=== PATIENT | female | born 1955 | race Caucasian/White ===

== ENCOUNTER 2019-12-13 17:25 | Observation (INO) ==
[2019-12-13] MEDS ORDERED: ACETAMINOPHEN 325 MG TAB PO PRN (20:47)
[2019-12-13] MEDS ORDERED: ONDANSETRON INJ 2 MG/ML 2 ML VIAL IV PRN (20:47)
--- NOTE | 2019-12-13 20:59 | History & Physical Report ---
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 No abdominal pain, distention. Abdominal exam is benign. No UGI symptoms. Patient HD stable -Admit to medical with telemetry -Maintain 2 PIVs -Check CBC now and q 8 hours - transfuse for active bleed, Hgb <7 or symptomatic anemia -Obtain records from [facility] and colonoscopy reports from Dr. Verma -GI consultation appreciated -Will keep patient NPO, check Covid-19 for possible intervention Present on Admission?: Yes (2) Syncope: Most likely secondary to #1. Patient with no history of structural heart disease, arrhythmia or CAD. 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 Patient reports passing dark red blood with clots over the last 24 hours, blood "pouring out of her" at times. She has no abdominal pain, cramping, bloating or distention. No nausea/vomiting/hematemesis. 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 She was at work today and reports feeling dizzy and lightheaded. She sat down and put her head down then upon standing she had a syncopal event. She was seen in the ER there - found to be afebrile, HD stable with HR 72-83 and BP 118-156/59-93. Initially noted to be ashen in color which resolved. Labs at [facility] were significant for Hgb=13.2, Hct=38.7. She did have an elevated WBC count at 16.2. PT=11.6, INR=1.16 Lacate=2.1 She was administered 1L NSS and Metoclopramide and transferred to [facility] for GI services. Allergies Allergy/AdvReac Type Severity Reaction Status Date / Time amoxicillin Allergy Intermediate rash Verified 12/13/19 21:07 clavulanic acid Allergy Intermediate rash Verified 12/13/19 21:07 Home Medications Home Medications Medication Instructions Recorded Confirmed Type latanoprost 1 drp OPHTHALMIC (EYE) DAILY 12/13/19 12/13/19 History Past Med/Surg History Medical History (Updated 12/13/19 @ 21:18 by Jennifer Killian DO) Diverticulosis with history of rupture Glaucoma Internal hemorrhoid Primary cancer of appendix Surgical History (Updated 12/13/19 @ 21:09 by Jennifer Killian DO) History of Achilles tendon repair History of appendectomy History of cataract surgery History of section History of colostomy History of colostomy reversal History of hemicolectomy History of hernia surgery Family History (Updated 12/13/19 @ 21:09 by Jennifer Killian DO) Other Cancer Coronary heart disease Social History (Updated 12/13/19 @ 21:10 by Jennifer Killian DO) Smoking Status: Former smoker Hx Alcohol Use: No Hx Substance Use: No current occupational status: employed Review of Systems Review of Systems: All systems reviewed & are unremarkable except as noted in HPI & below Physical Exam Physical Exam: General: patient resting comfortably, NAD, non-toxic in appearance, AA&O x 4 Skin: warm, dry, intact, no rashes or lesions HEENT: NC/AT, PERRL, EOMI, anicteric sclera, conjunctiva without injection, external ear normal to inspection and nontender, nares patent, moist mucus membranes, dentition intact, no oropharyngeal lesions, neck supple, trachea midline, no LAD, no thyromegaly, no JVD Heart: +S1/S2, regular, no m/r/g Lungs: equal air entry bilaterally, no rales/rhonchi, faint end-expiratory wheezing in left upper lung field Abd: +BS, soft, NT/ND, no masses/organomegaly/ascites Ext: warm, 2+ pulses in UE/LE bilaterally, no clubbing/cyanosis or edema, PIV in right antecubital Neuro: nonfocal, patient AA&O x 4, speech intact, no facial droop, moving all extremities on command with equal strength 5/5 Results & Data Results & Data ([facility]) Laboratory Results From [facility]: WBC=16.2 Hgb=13.2 Hct=38.7 Chemistry WNL with exception of low Ca at 8.3 Troponin negative Lactate=2.1 LFTs unremarkable EKG with NSR at 71no mormal intervals, no ischemic changes Code Status & VTE Plan Code Status Full PG Care Time/CCT Total # of Minutes Spent Total Time Spent with Patient: Total time spent is greater than 50% in coordination of care (as documented) at patient's floor/unit and/or counseling patient: Coding Level of Care Code 82687 Initial Inpt Care Lvl 2 Diagnoses LGI bleed K92.2 Syncope R55 Syncope type: unspecified Glaucoma H40.9 Glaucoma type: unspecified Laterality: unspecified laterality (1) Syncope Syncope type: unspecified Qualified Code(s): R55 - Syncope and collapse (2) Glaucoma Glaucoma type: unspecified Laterality: unspecified laterality Qualified Code(s): H40.9 - Unspecified glaucoma
[2019-12-13 21:14] LABS: Basophils # (auto) 0.05 K/uL (0-0.2); Basophils % (auto) 0.4 %; Eosinophils # (auto) 0.46 K/uL (0-0.5); Eosinophils % (auto) 3.6 %; Hematocrit (blood only) 37.1 % (37-47); Immature Granulocytes # (auto) 0.04 K/uL (0.00-0.02); Immature Granulocytes % (auto) 0.3 %; Lymphocytes # (auto) 3.49 K/uL (1.2-3.4); Mean Corpuscular Hemoglobin 28.8 pg (25-34); Mean Corpuscular Hgb Conc 32.3 g/dL (32-36); Mean Corpuscular Volume 89.2 fL (80-100); Mean Platelet Volume 9.1 fL (7.4-10.4); Monocytes % (auto) 5.4 %; Neutrophils % (auto) 63.3 %; Platelet Count 225 K/uL (130-400); RDW Coefficient of Variation 14.6 % (11.5-14.5); RDW Standard Deviation 47.1 fL (36.4-46.3); Red Blood Count 4.16 M/uL (4.2-5.4); White Blood Count 12.94 K/uL (4.8-10.8)
[2019-12-13] MEDS ORDERED: SODIUM CHLORIDE 0.9% 1000ML 1,000 ML IV SCH (21:30)
[2019-12-14 06:25] LABS: Basophils # (auto) 0.05 K/uL (0-0.2); Basophils % (auto) 0.5 %; Eosinophils # (auto) 0.34 K/uL (0-0.5); Eosinophils % (auto) 3.2 %; Hematocrit (blood only) 32.6 % (37-47); Hemoglobin 10.8 g/dL (12.0-16.0); Immature Granulocytes # (auto) 0.03 K/uL (0.00-0.02); Immature Granulocytes % (auto) 0.3 %; Lymphocytes # (auto) 2.99 K/uL (1.2-3.4); Lymphocytes % (auto) 27.9 %; Mean Corpuscular Hemoglobin 29.6 pg (25-34); Mean Corpuscular Hgb Conc 33.1 g/dL (32-36); Mean Corpuscular Volume 89.3 fL (80-100); Mean Platelet Volume 8.9 fL (7.4-10.4); Monocytes # (auto) 0.51 K/uL (0.11-0.59); Monocytes % (auto) 4.8 %; Neutrophils # (auto) 6.79 K/uL (1.4-6.5); Neutrophils % (auto) 63.3 %; Platelet Count 202 K/uL (130-400); RDW Coefficient of Variation 14.6 % (11.5-14.5); RDW Standard Deviation 47.9 fL (36.4-46.3); Red Blood Count 3.65 M/uL (4.2-5.4); White Blood Count 10.71 K/uL (4.8-10.8)
[2019-12-14 06:26] LABS: INR 1.2 (0.9-1.1); Prothrombin Time 12.5 Seconds (9.0-12.0)
[2019-12-14 06:44] LABS: Albumin Level 2.8 gm/dl (3.4-5.0); Bilirubin Direct 0.2 mg/dl (0-0.2); Calcium 7.8 mg/dl (8.5-10.1); Creatinine Clr Calc Pharmacy 91.3 ml/min; Est GFR (African American) 106.9; Est GFR (Non-African American) 92.2; Potassium 4.2 mmol/L (3.5-5.1)
[2019-12-14 06:46] LABS: Bilirubin,Total 1.1 mg/dl (0.2-1); Total Protein 5.6 gm/dl (6.4-8.2)
--- NOTE | 2019-12-14 09:16 | Medical Student Progress Note ---
Date of Service December 14, 2019 Assessment & Plan (1) Syncope: Likely secondary to LGIB. No history of cardiac issues, EKG, troponin normal. No chest pain or SOB. Fall precautions. Syncope type: unspecified Qualified Code(s): R55 - Syncope and collapse (2) LGI bleed: Consulted GI: Recommend CT scan and colonoscopy to check lower GI bleed. Continue to monitor hgb and hct. Patient is concerned about prep for colonoscopy making her bleeding worse. She is also concerned about getting a CT today and wants the colonoscopy today instead of tomorrow. NPO Hgb 12.0 on admission down to 10.8 Hct 37.1 to 32.6 (3) Glaucoma: Pressures controlled by latanoprost. Glaucoma type: unspecified Laterality: unspecified laterality Qualified Code(s): H40.9 - Unspecified glaucoma Present on Admission?: Yes Admission and Anticipated Discharge Date Admission Date: December 13, 2019 Subjective CC:Bright red blood and clots pouring out when using the bathroom and passing out Patient is feeling well this morning, more rested since last night, and no blood or stool this morning. Review of Systems Constitutional: no fever and no weakness Respiratory: no cough and no dyspnea Cardiovascular: no chest pain, no palpitations, no syncope and no edema Gastrointestinal: no abdominal pain, no nausea and no vomiting No BM today Physical Exam Constitutional: WD/WN, vitals as above Respiratory: normal respiratory effort, lungs clear to auscultation Cardiovascular: RRR, no murmur, no edema Heart Sounds: normal S1 and normal S2 Gastrointestinal (Abdomen): Inspection/Auscultation: abdomen not distended Percussion/Palpation: abdomen soft; abdomen nontender normal bowel sounds upper right quadrant, no bowel sounds other 3 quadrants Psychiatric: A+Ox3, euthymic affect Results & Data ([facility]) Vital Signs (Past 12 Hours) Vital Signs Temp Pulse Pulse Resp BP Pulse Ox 12/14/19 07:05 36.7 C 79 18 100/67 95 12/14/19 04:00 36.4 C L 66 17 100/66 97 12/14/19 00:00 36.7 C 76 17 100/67 98 12/13/19 23:00 79 12/13/19 22:51 113 H
--- NOTE | 2019-12-14 09:38 | Gastrointestinal Consultation ---
Date of Consultation December 14, 2019 Assessment & Plan (1) LGI bleed: LGI bleeding - Began 12/12/2019. Hgb 10.8/Hct 32.[address] A/P with po and IV contrast. If negative, plan is colonoscopy tomorrow. Please refer to supervising physician addendum for further recommendations. Supervising Physician Co-Signing Physician Notes I have spoken to and examined patient. I reviwed RENEE Rodriguez and agree except as mentioned above. Abd pos bs, soft, no guarding nor rebound GI bleeding--likely LGI bleed. NO stool since last evening and Hgb stable at noon. Recommend colo and if neg EGD but need CT a/p to rule out ischemic colitis or diverticulitis which precludes colonoscopy. If CT done today and can get report this evening then can prep for tomorrow. Elevated WBC at [facility] improved but do CT as above elevated lactic acid at [facility] no current abd pain but check CT as above. History of Present Illness Attending Physician: Lemuel Sweeney, History of Present Illness The patient is a 64-year-old female with past medical history significant for appendiceal cancer 2008 status post hemicolectomy with colostomy placement, subsequent takedown, diverticulosis and internal hemorrhoids who presented to [facility] after positive LOC at work with 24-hour histories of bright and dark red stool with clots. She was subsequently transferred to [facility] as there was not GI coverage at [facility]. On exam/interview today, she reports that she was placed on prednisone 12/02/2019 due to complaints of a new problem. She states on 12/12/2019 she started having loose bowels that progressed to having blood noted in stool. She states this progressed to liquid stool with bloody clots. States there was bright and dark red blood in the stool. 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 She was assessed in the [facility] emergency department as noted above. She denies abdominal pain, nausea, vomiting, hematemesis. Reports last po intake on Saturday. Reports liquid and bloody stool through the night. Reports last colonoscopy 11/[address] Verma at [facility]. She is a former smoker. She reports he quit smoking in 2007. She reports a 36- year smoking pack history. She denies any use of alcohol or recreational drugs including marijuana. 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 She is . Allergies Allergy/AdvReac Type Severity Reaction Status Date / Time amoxicillin Allergy Intermediate rash Verified 12/13/19 21:07 clavulanic acid Allergy Intermediate rash Verified 12/13/19 21:07 Home Medications Home Medications Medication Instructions Recorded Confirmed Type latanoprost 1 drp OPHTHALMIC (EYE) DAILY 12/13/19 12/13/19 History Patient History Medical History (Updated 12/13/19 @ 21:18 by Jennifer Killian DO) Diverticulosis with history of rupture Glaucoma Internal hemorrhoid Primary cancer of appendix Surgical History (Updated 12/13/19 @ 21:09 by Jennifer Killian DO) History of Achilles tendon repair History of appendectomy History of cataract surgery History of section History of colostomy History of colostomy reversal History of hemicolectomy History of hernia surgery Family History (Updated 12/13/19 @ 21:09 by Jennifer Killian DO) Other Cancer Coronary heart disease Social History (Updated 12/13/19 @ 21:10 by Jennifer Killian DO) Smoking Status: Former smoker Smoking End Date: 2007; Second Hand Exposure: No; Do You Dip or Chew Tobacco: No; Tobacco Cessation Education Requested by Patient: No Hx Alcohol Use: No Hx Substance Use: No Preferred Language: Fijian Communication Ability: Effective Apprentice Cook Required: No Beliefs That Will Affect Care: None marital status: Current Living Situation: Spouse current occupational status: employed Feels Safe at Home: Yes Safety Concerns: Feels Safe At This Time Assistive Devices: Denture - Upper, Denture - Lower and Glasses Review of Systems Review of Systems: All systems reviewed & are unremarkable except as noted in Subjective Physical Exam Constitutional: WD/WN, vitals as above Eyes: no conjunctival abnormality ENMT: Nose: no external nose abnormality Neck: normal visual inspection and trachea midline Respiratory: normal respiratory effort, lungs clear to auscultation Cardiovascular: RRR, no murmur, no edema Gastrointestinal (Abdomen): normal bowel sounds, soft, nontender, no hepatosplenomegaly Musculoskeletal: Extremities: no cyanosis and no clubbing Psychiatric: Orientation: alert and oriented x 3 Results & Data ([facility]) Vital Signs (Past 12 Hours) Vital Signs Temp Pulse Pulse Resp BP Pulse Ox 12/14/19 07:05 36.7 C 79 18 100/67 95 12/14/19 04:00 36.4 C L 66 17 100/66 97 12/14/19 00:00 36.7 C 76 17 100/67 98 12/13/19 23:00 79 12/13/19 22:51 113 H Laboratory Results - last 24 hr 12/13/19 12/13/19 12/13/19 21:03 22:30 22:30 WBC 12.94 H RBC 4.16 L Hgb 12.0 Hct 37.1 MCV 89.2 MCH 28.8 MCHC 32.3 RDW Std Deviation 47.1 H RDW Coeff of Jatin 14.6 H Plt Count 225 MPV 9.1 Immature Gran % (Auto) 0.3 Neut % (Auto) 63.3 Lymph % (Auto) 27.0 [place] % (Auto) 5.4 Eos % (Auto) 3.6 Baso % (Auto) 0.4 Neut # (Auto) 8.20 H Lymph # (Auto) 3.49 H [place] # (Auto) 0.70 H Eos # (Auto) 0.46 Baso # (Auto) 0.05 Immature Gran # (Auto) 0.04 H PT INR Sodium Potassium Chloride Carbon Dioxide Anion Gap BUN Creatinine Est Cr Clr Drug Dosing Est GFR ( Amer) Est GFR (Non-Af Amer) BUN/Creatinine Ratio Glucose Calcium Total Bilirubin Direct Bilirubin AST ALT Alkaline Phosphatase Total Protein Albumin COVID-19 [facility] SARS-CoV-2, RNA, NAAT NEGATIVE 12/14/19 12/14/19 12/14/19 06:00 06:00 06:00 WBC 10.71 RBC 3.65 L Hgb 10.8 L Hct 32.6 L MCV 89.3 MCH 29.6 MCHC 33.1 RDW Std Deviation 47.9 H RDW Coeff of Jatin 14.6 H Plt Count 202 MPV 8.9 Immature Gran % (Auto) 0.3 Neut % (Auto) 63.3 Lymph % (Auto) 27.9 [place] % (Auto) 4.8 Eos % (Auto) 3.2 Baso % (Auto) 0.5 Neut # (Auto) 6.79 H Lymph # (Auto) 2.99 [place] # (Auto) 0.51 Eos # (Auto) 0.34 Baso # (Auto) 0.05 Immature Gran # (Auto) 0.03 H PT 12.5 H INR 1.2 H Sodium 143 Potassium 4.2 Chloride 111 H Carbon Dioxide 28 Anion Gap 4.0 BUN 14 Creatinine 0.70 Est Cr Clr Drug Dosing 91.3 Est GFR ( Amer) 106.9 Est GFR (Non-Af Amer) 92.2 BUN/Creatinine Ratio 20.0 Glucose 98 Calcium 7.8 L Total Bilirubin 1.1 H Direct Bilirubin 0.2 AST 16 ALT 33 Alkaline Phosphatase 52 Total Protein 5.6 L Albumin 2.8 L COVID-19 Eval Order SARS-CoV-2, RNA, NAAT
--- NOTE | 2019-12-14 09:49 | Hospitalist Progress Note ---
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 She is hemodynamically stable. Lower GI Bleed - Patient is hemodynamically stable -- BPs in 130/70s with HR 88 today, H&H at 10.8/32.6 this AM - Clinically, patient reports approx. 24 hours of painless loose stools with associated dark/fresh blood (+clots) -- last BM was yesterday (no leakage of blood since) - Per patient, last colonoscopy was approximately 11/[address] Verma at [facility] -- has notable history of internal hemorrhoids and diverticulosis - Patient denies any infectious / inflammatory symptoms preceding this episode -- only possible trigger she recalls is being on prednisone for about a week for OA-related pain - Given history of painless hematochezia and known history of internal hemorrhoids / diverticulosis on previous colonoscopy (per patient), suspect this GIB is likely 2/2 diverticulosis - GI following, appreciate recs: - CT Abdomen/Pelvis to r/o ischemic colitis / diverticulitis, both of which preclude colonoscopy -- f/u on results - Anticipate colonoscopy tomorrow -- f/u based on results ; if negative, consider EGD - Bowel prep this afternoon, NPO after midnight Normocytic Anemia -- Likely 2/2 Acute Blood Loss in Setting of Lower GIB - Admission H&H 12.0/37.1 - Recheck this AM revealed H&H of 10.7/31.8 -- normochromic and normocytic, consistent with loss 2/2 hemorrhage - Patient currently denies any symptoms concerning of anemia, including lightheadedness, dizziness, shortness of breath, chest pain -- continue to monitor - CBC qAM - Transfuse if Hgb < 7 or symptomatic Syncopal Episode on 12/12 - Most likely 2/2 acute blood-loss anemia in setting of lower GIB - Patient denies any history of structural heart disease, arrhythmia, or CAD - ECG in the ED demonstrated NSR without any concerning ST-T abnormalities - Med/surg with telemetry for continued cardiac monitoring because of recent syncope - Fall precautions Chronic Medical Problems [place]: Continue latanoprost Dispo: Med/surg with Tele F/E/N: Bowel prep in anticipation of colonoscopy tomorrow, NPO after midnight; NSS @ 125 mIVF x 1 bag PPX: Low risk of DVT Code: Full code (2) LGI bleed: Admission and Anticipated Discharge Date Admission Date: December 13, 2019 Supervising Physician Co-Signing Physician Notes I personally examined the patient and verified all farfan points of history and exam, discussed case, and agree with decision making with Dr Sterling. feeling ok no bleeding since admission case d/w GI vitals noted nad heent nc at mmm breathing unlabored no accessory muscles good effort LGI bleeding and (mild) acute blood loss anemia -continue to follow -CT done - no ischemia noted -scope tomorrow -follow clinically/ follow vitals/follow Hgb otherwise as above Subjective No acute events overnight. Patient denies any abdominal pain or bleeding overnight, endorsing the last time her bleeding occurred was yesterday. On further review of history, she says that her presenting symptoms were mostly diarrhea with clots of blood. She denies any recent illnesses, including fevers, chills, or night sweats. Denies this has ever happened before. Of note, she does report feeling hungry, not having eaten since Saturday night. No other concerns this morning. Review of Systems Constitutional: no fever, no chills and no sweats Respiratory: no cough and no dyspnea Cardiovascular: no chest pain and no palpitations Gastrointestinal: as per Subjective / HPI, + change in bowel habits and + blood in stools; no abdominal pain, no nausea, no vomiting and no cramping Physical Exam Constitutional: Well-appearing 64-year-old female who sitting back in her hospital bed, relaxed and attentive in our conversation. She speaks in full sentences. She is alert and oriented, not in any acute distress. Respiratory: Good respiratory effort with symmetric expansion of the chest. Lungs are clear to auscultation bilaterally without any crackles or wheezes. Cardiovascular: Normal rate and regular rhythm, S1 and S2 are present without any murmurs rubs or gallops. Gastrointestinal (Abdomen): Normoactive bowel sounds. Abdomen is soft, nontender, nondistended to palpation. No appreciable organomegaly. Psychiatric: A+Ox3, euthymic affect Results & Data Results & Data ([facility]) Vital Signs (Past 12 Hours) Vital Signs Temp Pulse Pulse Resp BP Pulse Ox 12/14/19 07:05 36.7 C 79 18 100/67 95 12/14/19 04:00 36.4 C L 66 17 100/66 97 12/14/19 00:00 36.7 C 76 17 100/67 98 12/13/19 23:00 79 12/13/19 22:51 113 H Resident Activity Tracking Resident Involvement: Resident Care Provided Care Provided: Adult Hospital Medicine (1) Syncope Syncope type: unspecified Qualified Code(s): R55 - Syncope and collapse
[2019-12-14 13:02] LABS: Basophils # (auto) 0.03 K/uL (0-0.2); Basophils % (auto) 0.3 %; Eosinophils # (auto) 0.22 K/uL (0-0.5); Eosinophils % (auto) 2.3 %; Hematocrit (blood only) 31.8 % (37-47); Hemoglobin 10.7 g/dL (12.0-16.0); Immature Granulocytes # (auto) 0.03 K/uL (0.00-0.02); Immature Granulocytes % (auto) 0.3 %; Lymphocytes # (auto) 2.44 K/uL (1.2-3.4); Mean Corpuscular Hemoglobin 29.6 pg (25-34); Mean Corpuscular Hgb Conc 33.6 g/dL (32-36); Mean Corpuscular Volume 88.1 fL (80-100); Mean Platelet Volume 8.9 fL (7.4-10.4); Monocytes # (auto) 0.57 K/uL (0.11-0.59); Monocytes % (auto) 6.1 %; Neutrophils # (auto) 6.09 K/uL (1.4-6.5); Platelet Count 192 K/uL (130-400); RDW Coefficient of Variation 14.5 % (11.5-14.5); RDW Standard Deviation 47.1 fL (36.4-46.3); Red Blood Count 3.61 M/uL (4.2-5.4); White Blood Count 9.38 K/uL (4.8-10.8)
[2019-12-14] MEDS ORDERED: LACTATED RINGER'S 1,000 ML IV SCH (14:30)
[2019-12-14] MEDS ORDERED: IOVERSOL 100ml IV ONE (17:47)
--- NOTE | 2019-12-14 17:57 | CT Scan Report ---
CT abd pelvis oral and IV con CLINICAL HISTORY: GI bleed, r/o ischemic colitis COMPARISON STUDY: None. TECHNIQUE: Patient was scanned following administration of dilute oral contrast, and in a dynamic hel ical fashion during intravenous administration of 92 cc of Optiray 320. A dose lowering technique wa s utilized adhering to the principles of ALARA. CT DOSE: 1157.90 mGy.cm FINDINGS: Lower chest: There is mild basilar atelectasis Liver: There is 9 mm right hepatic lobe hypodense lesion likely representing a cyst. Gallbladder: Unremarkable. Spleen: Normal in size and attenuation. Pancreas: Unremarkable. Adrenal glands: There is minor left adrenal gland thickening. Kidneys: There is symmetric renal cortical enhancement. The kidneys are normal in size without hydron ephrosis. Bowel: There are no transition zones to indicate bowel obstruction. There are no findings to indicate acute diverticulitis. By history the appendix is surgically absent. There is borderline sigmoid wall thickening. There is no evidence for infiltration of the perisigmoid fat. No inflamed diverticula ar e visualized. Peritoneum: There is no intraperitoneal free air or abdominal ascites. There are small fat-containing ventral hernias. The patient appears be status post ventral hernia repair with mesh. Vasculature: The abdominal aorta is normal in course and caliber. There is no evidence of superior me senteric or celiac artery stenosis. Adenopathy: None. Pelvic viscera: The bladder, and pelvic viscera are unremarkable. Skeletal structures: No destructive osseous lesions are seen. IMPRESSION: 1. No evidence of bowel obstruction. No evidence of free air 2. Minimal sigmoid wall thickening versus a nondistended segment 3. No evidence of acute diverticulitis 4. No evidence of celiac or superior mesenteric artery stenosis on this nonangiographic study ACT 112: Negative or not required by law. Electronically signed by: Domingo Shin M.D. 12/14/2019 5:56 PM
--- NOTE | 2019-12-14 18:40 | Billing Data ---
Date of Service December 14, 2019 Coding Level of Care Code 26406 Subseq Hosp Care Lvl 3
[2019-12-14] MEDS ORDERED: POLYETHYLENE (MIRALAX) 17 GM PACK PO ONE ×2 (19:30→20:47)
[2019-12-14] MEDS ORDERED: LATANOPROST 0.005% OP SOLN 2.5 ML BTL OP SCH (21:00)
[2019-12-15 05:33] LABS: Basophils # (auto) 0.03 K/uL (0-0.2); Basophils % (auto) 0.3 %; Eosinophils # (auto) 0.26 K/uL (0-0.5); Eosinophils % (auto) 2.5 %; Hematocrit (blood only) 29.2 % (37-47); Hemoglobin 10.1 g/dL (12.0-16.0); Immature Granulocytes # (auto) 0.04 K/uL (0.00-0.02); Immature Granulocytes % (auto) 0.4 %; Lymphocytes # (auto) 2.81 K/uL (1.2-3.4); Lymphocytes % (auto) 27.2 %; Mean Corpuscular Hemoglobin 30.7 pg (25-34); Mean Corpuscular Hgb Conc 34.6 g/dL (32-36); Mean Corpuscular Volume 88.8 fL (80-100); Monocytes % (auto) 5.8 %; Neutrophils # (auto) 6.59 K/uL (1.4-6.5); Neutrophils % (auto) 63.8 %; Platelet Count 198 K/uL (130-400); RDW Coefficient of Variation 14.6 % (11.5-14.5); RDW Standard Deviation 47.7 fL (36.4-46.3); Red Blood Count 3.29 M/uL (4.2-5.4); White Blood Count 10.33 K/uL (4.8-10.8)
--- NOTE | 2019-12-15 05:46 | Electrocardiogram Report ---
Test Reason : Blood Pressure : / mmHG Vent. Rate : 072 BPM Atrial Rate : 072 BPM P-R Int : 136 ms QRS Dur : 090 ms QT Int : 428 ms P-R-T Axes : 042 -15 010 degrees QTc Int : 468 ms Normal sinus rhythm Normal ECG No previous ECGs available Confirmed by Silverio Abarca ([id number]) on 12/15/2019 5:45:56 AM Referred By: Cathleen Hankins Confirmed By:Silverio Abarca
[2019-12-15 06:19] LABS: Est GFR (African American) 105.1; Est GFR (Non-African American) 90.7; Potassium 3.8 mmol/L (3.5-5.1)
[2019-12-15 06:20] LABS: Albumin Globulin Ratio 0.9 (0.9-2); Albumin Level 2.8 gm/dl (3.4-5.0); BUN Creatinine Ratio 11.3 (10-20); Bilirubin,Total 0.6 mg/dl (0.2-1); Calcium 8.1 mg/dl (8.5-10.1); Creatinine Clr Calc Pharmacy 90.1 ml/min; Total Protein 5.8 gm/dl (6.4-8.2)
--- NOTE | 2019-12-15 08:39 | Medical Student Progress Note ---
Date of Service December 15, 2019 Assessment & Plan (1) Syncope: No syncope or lightheadedness or dizziness since admission. Likely secondary to LGIB. No cardiac issues. Syncope type: unspecified Qualified Code(s): R55 - Syncope and collapse (2) LGI bleed: Patient is a 64 y/o F with 2 days of bright red blood in stool with history of appendiceal cancer, hemicolectomy, with colostomy and reversal, and ruptured diverticulosis. No inflamed diverticula, diverticulitis, or bowel obstruction seen on CT. Some minimal sigmoid wall thickening. Colonoscopy prep done overnight, colonoscopy scheduled for 4:30pm today. Hbg 10.7 yesterday to 10.1 this morning. Hct 31.8 to 29.2. (3) Glaucoma: Glaucoma type: unspecified Laterality: unspecified laterality Qualified Code(s): H40.9 - Unspecified glaucoma Admission and Anticipated Discharge Date Admission Date: December 13, 2019 Subjective Patient was given Miralax as part of colonoscopy prep last night. Passed one loose bowel movement with bright red blood before receiving Miralax. Post- Miralax, she passed multiple clear bowel movements with no blood. She was not able to complete the full Miralax prep. She experienced some abdominal cramping and nausea which resolved with Zofran. Overall feeling better this morning compared to yesterday with no nausea, vomiting, abd pain or cramping, and no bloody stool today. Endorses a headache this morning from not eating other than clear liquids since Saturday. Colonoscopy is scheduled for today at 4:[address] Patel. Review of Systems Respiratory: no cough and no dyspnea Cardiovascular: no chest pain Gastrointestinal: no abdominal pain, no nausea, no vomiting, no cramping and no blood in stools clear liquid stools Physical Exam Constitutional: no acute distress Respiratory: normal respiratory effort, lungs clear to auscultation Cardiovascular: RRR, no murmur, no edema Heart Sounds: normal S1 and normal S2 Gastrointestinal (Abdomen): normal bowel sounds, soft, nontender, no hepatosplenomegaly Inspection/Auscultation: abdomen not distended Percussion/Palpation: no guarding Results & Data ([facility]) Vital Signs (Past 12 Hours) Vital Signs Temp Pulse Resp BP Pulse Ox 12/15/19 07:27 36.6 C 82 16 116/78 94 12/14/19 23:05 36.6 C 98 H 20 113/76 96 12/14/19 20:48 36.8 C 89 18 120/[address] IMPRESSION: 1. No evidence of bowel obstruction. No evidence of free air 2. Minimal sigmoid wall thickening versus a nondistended segment 3. No evidence of acute diverticulitis 4. No evidence of celiac or superior mesenteric artery stenosis on this nonangiographic study
--- NOTE | 2019-12-15 08:52 | Gastroenterology Progress Note ---
Date of Service December 15, 2019 Assessment & Plan (1) LGI bleed: LGI bleeding CT A/p demonstrated minimal sigmoid wall thickening versus a nondistended segment; no acute findings. Patient tolerated colonoscopy prep. Today - Hgb 10.1/Hct 29.2, WBC WNL. Plan is EGD and colonoscopy today. 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 She was subsequently transferred to [facility] as there was not GI coverage at [facility]. On exam/interview today, she reports she has had no further bloody stools. CT A/P imaging demonstrated showed minimal sigmoid wall thickening vs. a nondistended segment. No other acute findings. She denies abdominal pain, nausea, vomiting, hematemesis. Tolerated colonoscopy prep with minimal nausea. Reports clear liquid bowel movements. No fever, dizziness, shortness of breath. Review of Systems Review of Systems: All systems reviewed & are unremarkable except as noted in Subjective Physical Exam Constitutional: WD/WN, vitals as above Eyes: no conjunctival abnormality ENMT: Nose: no external nose abnormality Neck: normal visual inspection and trachea midline Respiratory: normal respiratory effort, lungs clear to auscultation Cardiovascular: RRR, no murmur, no edema Gastrointestinal (Abdomen): normal bowel sounds, soft, nontender, no hepatosplenomegaly Musculoskeletal: Extremities: no cyanosis and no clubbing Psychiatric: Orientation: alert and oriented x 3 Results & Data ([facility]) Vital Signs (Past 12 Hours) Vital Signs Temp Pulse Resp BP Pulse Ox 12/15/19 07:27 36.6 C 82 16 116/78 94 12/14/19 23:05 36.6 C 98 H 20 113/76 96 Laboratory Results - last 24 hr 12/14/19 12/15/19 12/15/19 12:47 05:10 05:10 WBC 9.38 10.33 RBC 3.61 L 3.29 L Hgb 10.7 L 10.1 L Hct 31.8 L 29.2 L MCV 88.1 88.8 MCH 29.6 30.7 MCHC 33.6 34.6 RDW Std Deviation 47.1 H 47.7 H RDW Coeff of Jatin 14.5 14.6 H Plt Count 192 198 MPV 8.9 9.0 Immature Gran % (Auto) 0.3 0.4 Neut % (Auto) 65.0 63.8 Lymph % (Auto) 26.0 27.2 Moody % (Auto) 6.1 5.8 Eos % (Auto) 2.3 2.5 Baso % (Auto) 0.3 0.3 Neut # (Auto) 6.09 6.59 H Lymph # (Auto) 2.44 2.81 Moody # (Auto) 0.57 0.60 H Eos # (Auto) 0.22 0.26 Baso # (Auto) 0.03 0.03 Immature Gran # (Auto) 0.03 H 0.04 H Sodium 144 Potassium 3.8 Chloride 113 H Carbon Dioxide 26 Anion Gap 5.0 BUN 8 D Creatinine 0.71 Est Cr Clr Drug Dosing 90.1 Est GFR ( Amer) 105.1 Est GFR (Non-Af Amer) 90.7 BUN/Creatinine Ratio 11.3 Glucose 92 Calcium 8.1 L Total Bilirubin 0.6 D AST 16 ALT 31 Alkaline Phosphatase 49 Total Protein 5.8 L Albumin 2.8 L Globulin 3.0 Albumin/Globulin Ratio 0.9 12/14/2019: CT abd pelvis oral and IV con demonstrated: 1. No evidence of bowel obstruction. No evidence of free air 2. Minimal sigmoid wall thickening versus a nondistended segment 3. No evidence of acute diverticulitis 4. No evidence of celiac or superior mesenteric artery stenosis on this nonangiographic study
--- NOTE | 2019-12-15 15:25 | Anesthesiology Consultation ---
Date of Service December 15, 2019 Assessment & Plan Chart Review Chart Review: Acceptable Risk for Surgery Consults Requested none History Surgery Operation Date: 12/15/19 16:30 Proposed Procedures p Colonoscopy EGD Dr Amanda Patel Height/Weight Height: 5 ft 4 in Weight: 93.8 kg Allergies Allergy/AdvReac Type Severity Reaction Status Date / Time amoxicillin Allergy Intermediate rash Verified 12/15/19 14:52 clavulanic acid Allergy Intermediate rash Verified 12/15/19 14:52 Medications Home Medications Medication Instructions Recorded Confirmed Last Taken latanoprost 1 drp OPHTHALMIC (EYE) DAILY 12/13/19 12/13/19 Unknown Active Medications Generic Name Dose Route Start Last Admin Trade Name Freq PRN Reason Stop Dose Admin Latanoprost 1 drops 12/14/19 21:00 12/14/19 20:54 Latanoprost 0.005% Op Soln 2.5 Ml Btl OP 01/13/20 20:59 1 drops HS KYAW Administration Ondansetron HCl 4 mg 12/13/19 20:47 12/14/19 23:33 Ondansetron Inj 2 Mg/Ml 2 Ml Vial IV 01/12/20 20:46 4 mg Q6H PRN Administration Nausea NPO Date Last Intake of Fluids: 12/14/19 Time Last Intake of Fluids: 22:45 Date Last Intake of Solids: 12/12/19 Time Last Intake of Solids: 21:00 Past Medical History Medical History Diverticulosis with history of rupture Glaucoma Internal hemorrhoid Primary cancer of appendix Past Family History Family History Other Cancer Coronary heart disease Past Surgical History Surgical History History of Achilles tendon repair History of appendectomy History of cataract surgery History of section History of colostomy History of colostomy reversal History of hemicolectomy History of hernia surgery Social History Smoking Status: Former smoker tobacco type: cigarettes Do You Dip or Chew Tobacco: No Smoking End Date: 2007 Hx Alcohol Use: No Hx Substance Use: No substance use type: does not use Physical Exam Vital Signs Last Vital Signs Temp 37.1 C 12/15/19 14:54 Pulse 82 12/15/19 14:54 Resp 16 12/15/19 14:54 BP 127/73 12/15/19 14:54 Pulse Ox 97 12/15/19 14:54 Testing Laboratory Results 12/15/19 05:10 12/15/19 05:10 PT 12.5 Seconds (9.0-12.0) H 12/14/19 06:00 INR 1.2 (0.9-1.1) H 12/14/19 06:00
[2019-12-15] MEDS ORDERED: SODIUM CHLORIDE 0.9% 1000ML 1,000 ML IV SCH (15:30)
--- NOTE | 2019-12-15 15:30 | History & Physical Report ---
Date of Service December 15, 2019 Assessment & Plan Admission and Anticipated Discharge Date Admission Date: December 13, 2019 History of Present Illness Chief Complaint: rectal bleeding Primary Care Provider: Chantell Moreno PA-C For EGD and colonoscopy Allergies Allergy/AdvReac Type Severity Reaction Status Date / Time amoxicillin Allergy Intermediate rash Verified 12/15/19 14:52 clavulanic acid Allergy Intermediate rash Verified 12/15/19 14:52 Home Medications Home Medications Medication Instructions Recorded Confirmed Type latanoprost 1 drp OPHTHALMIC (EYE) DAILY 12/13/19 12/13/19 History Past Med/Surg History Medical History Diverticulosis with history of rupture Glaucoma Internal hemorrhoid Primary cancer of appendix Surgical History History of Achilles tendon repair History of appendectomy History of cataract surgery History of section History of colostomy History of colostomy reversal History of hemicolectomy History of hernia surgery Family History Other Cancer Coronary heart disease Social History (Updated 12/13/19 @ 21:10 by Jennifer Killian DO) Smoking Status: Former smoker Smoking End Date: 2007; Second Hand Exposure: No; Do You Dip or Chew Tobacco: No; Tobacco Cessation Education Requested by Patient: No Hx Alcohol Use: No Hx Substance Use: No Preferred Language: British Communication Ability: Effective 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 Beliefs That Will Affect Care: None marital status: Current Living Situation: Spouse current occupational status: employed Feels Safe at Home: Yes Safety Concerns: Feels Safe At This Time Assistive Devices: None Physical Exam Constitutional: + obese Respiratory: normal respiratory effort Cardiovascular: Rate/Rhythm: regular rate and regular rhythm Gastrointestinal (Abdomen): Percussion/Palpation: abdomen soft Results & Data ([facility]) Vital Signs (Past 12 Hours) Vital Signs Temp Pulse Pulse Resp BP BP Pulse Ox 12/15/19 14:54 37.1 C 82 16 127/73 97 12/15/19 11:48 36.7 C 94 H 16 136/78 98 12/15/19 07:27 36.6 C 82 16 116/78 94
[2019-12-15] MEDS ORDERED: PROPOFOL IV EMULSION 10 MG/ML 20 ML VIAL IV ONE (15:40)
[2019-12-15] MEDS ORDERED: LIDOCAINE HCL 2% 2 ML VIAL/AMP(20MG/ML) INFIL ONE (15:40)
--- NOTE | 2019-12-15 16:14 | GI REPORT ---
Patient Name: Naz Alfaro Procedure Date: 12/15/2019 3:03 PM Date of : 1955 Admit Type: Inpatient Age: 64 Gender: Female Attending MD: Winston Patel MD Procedure: Upper GI endoscopy Providers: Winston Patel MD Referring MD: Cathleen Hankins Md Indications: Hematochezia Medicines: Propofol total dose 350 mg IV, Lidocaine 40 mg IV Complications: No immediate complications. Estimated Blood Loss: Estimated blood loss: none. Procedure: Pre-Anesthesia Assessment: - Prior to the procedure, a History and Physical was performed, and patient medications, allergies and sensitivities were reviewed. The patient's tolerance of previous anesthesia was reviewed. - The risks and benefits of the procedure and the sedation options and risks were discussed with the patient. All questions were answered and informed consent was obtained. After obtaining informed consent, the endoscope was passed under direct vision. Throughout the procedure, the patient's blood pressure, pulse, and oxygen saturations were monitored continuously. The Endoscope was introduced through the mouth, and advanced to the second part of duodenum. The upper GI endoscopy was accomplished without difficulty. The patient tolerated the procedure well. Findings: The Z-line was regular and was found 35 cm from the incisors. LA Grade A (one or more mucosal breaks less than 5 mm, not extending between tops of 2 mucosal folds) esophagitis with no bleeding was found. A few non-bleeding localized erosions were found in the gastric antrum. There were no stigmata of recent bleeding. The examined duodenum was normal. Impression: - Z-line regular, 35 cm from the incisors. - LA Grade A reflux esophagitis. - Gastric erosions without bleeding. - Normal examined duodenum. - No specimens collected. Recommendation: - [facility]. Winston Patel M.D. Winston Patel MD 12/15/2019 4:13:50 PM This report has been signed electronically. Note Initiated On: 12/15/2019 3:03 PM Number of Addenda: 0 I attest to the content of the Intraoperative Record and orders documented therein, exceptions below {[id number]}
--- NOTE | 2019-12-15 16:16 | Anesthesiology Progress Note ---
Date of Service December 15, 2019 Anesthesia Post Procedure Vital Signs Vital Signs: Temp Pulse Pulse Pulse Resp BP BP 12/15/19 16:10 80 16 110/68 12/15/19 14:54 37.1 C 82 16 127/73 12/15/19 11:48 36.7 C 94 H 16 136/78 12/15/19 07:27 36.6 C 82 16 116/78 12/14/19 23:05 36.6 C 98 H 20 113/76 12/14/19 20:48 36.8 C 89 18 120/78 12/14/19 19:25 80 12/14/19 19:06 36.6 C 79 18 113/74 Pulse Ox 12/15/19 16:10 98 12/15/19 14:54 97 12/15/19 11:48 98 12/15/19 07:27 94 12/14/19 23:05 96 12/14/19 20:48 96 12/14/19 19:25 12/14/19 19:06 94 Transfer of Care Handoff Completed per policy Notes Mental Status: alert / awake / arousable Patient Amnestic to Procedure: Yes Nausea / Vomiting: adequately controlled Pain: adequately controlled Airway Patency, RR, SpO2: stable & adequate BP & HR: stable & adequate Hydration State: stable & adequate Anesthetic Complications: no major complications apparent
--- NOTE | 2019-12-15 16:18 | GI REPORT ---
Patient Name: Naz Alfaro Procedure Date: 12/15/2019 3:03 PM Date of : 1955 Admit Type: Inpatient Age: 64 Gender: Female Attending MD: Winston Patel MD Procedure: Colonoscopy Providers: Winston Patel MD Referring MD: Cathleen Hankins Md Indications: Rectal bleeding Medicines: Propofol total dose 350 mg IV, Lidocaine 40 mg IV Complications: No immediate complications. Estimated Blood Loss: Estimated blood loss: none. Procedure: Pre-Anesthesia Assessment: - Prior to the procedure, a History and Physical was performed, and patient medications, allergies and sensitivities were reviewed. The patient's tolerance of previous anesthesia was reviewed. - The risks and benefits of the procedure and the sedation options and risks were discussed with the patient. All questions were answered and informed consent was obtained. After I obtained informed consent, the scope was passed under direct vision. Throughout the procedure, the patient's blood pressure, pulse, and oxygen saturations were monitored continuously. The Colonoscope was introduced through the anus and advanced to the terminal ileum. The colonoscopy was performed without difficulty. The patient tolerated the procedure well. The quality of the bowel preparation was good. Findings: There was evidence of a prior end-to-side colo-colonic anastomosis in the sigmoid colon. This was patent and was characterized by healthy appearing mucosa. The anastomosis was traversed. A few small-mouthed diverticula were found in the sigmoid colon. A single (solitary) six mm ulcer was found in the cecum. No bleeding was present. No stigmata of recent bleeding were seen. The terminal ileum appeared normal. Impression: - Patent end-to-side colo-colonic anastomosis, characterized by healthy appearing mucosa. - Diverticulosis in the sigmoid colon. - A single (solitary) ulcer in the cecum. - The examined portion of the ileum was normal. - No specimens collected. Recommendation: - [facility]. Winston Patel M.D. Winston Patel MD 12/15/2019 4:17:56 PM This report has been signed electronically. Note Initiated On: 12/15/2019 3:03 PM Number of Addenda: 0 I attest to the content of the Intraoperative Record and orders documented therein, exceptions below {[id number]}
[2019-12-15] MEDS ORDERED: PANTOprazole 40 MG TAB PO SCH (16:30)
--- NOTE | 2019-12-15 17:04 | Progress Notes ---
DATE: 12/15/2019 The patient presented to the endoscopy unit today for upper and lower endoscopy for her rectal bleeding. The upper endoscopy was remarkable for grade A distal esophagitis consistent with some reflux. There was no obvious bleeding. The antrum and the stomach showed 2 small superficial linear erosions with no stigmata of bleeding. The duodenum was normal. On colonoscopy, the patient had previous sigmoid resection with end-to-side colocolonic anastomosis that was healthy in appearance and was easily traversed. There were a few sigmoid diverticula. There were no hemorrhoids, no blood in the colon. In the cecum, there was an ulcer that was not currently bleeding, but I suspect was the source of bleeding. I entered the terminal ileum for about 15 cm and there was no blood or source of blood loss. Specifically, there were no signs of ischemia in the colon. IMPRESSION: The patient's bleeding site was most likely a cecal ulcer, possibly related to her nonsteroidal use. There is no active bleeding at this time. The patient will return to the hospital floor for continued care.
--- NOTE | 2019-12-15 18:24 | Discharge Summary ---
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 Patient reports passing dark red blood with clots over the last 24 hours, blood "pouring out of her" at times. She has no abdominal pain, cramping, bloating or distention. No nausea/vomiting/hematemesis. 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 She was at work today and reports feeling dizzy and lightheaded. She sat down and put her head down then upon standing she had a syncopal event. She was seen in the ER there - found to be afebrile, HD stable with HR 72-83 and BP 118-156/59-93. Initially noted to be ashen in color which resolved. Labs at [facility] were significant for Hgb=13.2, Hct=38.7. She did have an elevated WBC count at 16.2. PT=11.6, INR=1.16 Lacate=2.1 She was administered 1L NSS and Metoclopramide and transferred to [facility] for GI services. Admission Exam Per Admitting Provider General: patient resting comfortably, NAD, non-toxic in appearance, AA&O x 4 Skin: warm, dry, intact, no rashes or lesions HEENT: NC/AT, PERRL, EOMI, anicteric sclera, conjunctiva without injection, external ear normal to inspection and nontender, nares patent, moist mucus membranes, dentition intact, no oropharyngeal lesions, neck supple, trachea midline, no LAD, no thyromegaly, no JVD Heart: +S1/S2, regular, no m/r/g Lungs: equal air entry bilaterally, no rales/rhonchi, faint end-expiratory wheezing in left upper lung field Abd: +BS, soft, NT/ND, no masses/organomegaly/ascites Ext: warm, 2+ pulses in UE/LE bilaterally, no clubbing/cyanosis or edema, PIV in right antecubital Neuro: nonfocal, patient AA&O x 4, speech intact, no facial droop, moving all extremities on command with equal strength 5/5 Principal Diagnosis lower gastrointestinal bleed cecal ulcer non-bleeding gastric erosions Discharge Exam Constitutional Well-appearing 64-year-old female who is lying in her hospital bed, relaxed and conversive during our conversation. She speaks in full sentences. No acute distress. Respiratory Good respiratory effort with symmetric expansion of the chest. Lungs are clear to auscultation bilaterally without any crackles or wheezes. Cardiovascular Normal rate and regular rhythm, S1 and S2 are present without any murmurs rubs or gallops. Gastrointestinal (Abdomen) Normoactive bowel sounds. Abdomen is soft, not tender, nondistended. No appreciable organomegaly. Discharge Data Allergies Allergy/AdvReac Type Severity Reaction Status Date / Time amoxicillin Allergy Intermediate rash Verified 12/15/19 14:52 clavulanic acid Allergy Intermediate rash Verified 12/15/19 14:52 Consultations 12/13/19 20:47 Consult Gastroenterology Routine Procedures Performed Operation Date: 12/15/19 16:30 Actual Procedures p Esophagogastroduodenoscopy - Winston Patel s Colonoscopy - Winston Patel Ordered Studies 12/14/19 14:35 CT abd pelvis oral and IV con Urgent Hospital Course (1) Syncope: Naz is a 64-year-old female with a notable past medical history of appendiceal cancer s/p hemicolectomy in 2007 with subsequent colostomy placement and takedown, alongside diverticulosis and internal hemorrhoids who presented to [facility] from [facility] (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 She remained hemodynamically stable throughout her stay. Lower GI Bleed - Patient remained hemodynamically stable throughout her stay -- discharge vitals 113/75, HR 78, RR 16, T 36.7, SpO2 96% RA - Clinically, patient reports approx. 24 hours of painless loose stools with associated dark/fresh blood (+clots) -- last BM was yesterday (no leakage of blood since) - Per patient, last colonoscopy was approximately 11/[address] Verma at [facility] -- has notable history of internal hemorrhoids and diverticulosis - Patient denies any infectious / inflammatory symptoms preceding this episode -- only possible trigger she recalls is being on prednisone for about a week for OA-related pain - Given history of painless hematochezia and known history of internal hemorrhoids / diverticulosis on previous colonoscopy (per patient), suspect this GIB is likely 2/2 diverticulosis - CT-Abd/Pelvis prior to CT demonstrated minimal sigmoid wall thickening without evidence of diverticulitis or acute pathology - Upper endoscopy demonstrated non-bleeding gastric erosions - Colonoscopy demonstrated solitary ulcer in the cecum alongside diverticulosis of sigmoid colon -- likely the source of her bleeding - Upon discharge, recommend limiting NSAID use in setting of recent bleeding and initiating daily PPI until PCP f/u - F/U clinically in outpatient setting - F/U CBC Normocytic Anemia -- Likely 2/2 Acute Blood Loss in Setting of Lower GIB - Admission H&H 12.0/37.1 - Stabilized at 10.1/29.2 morning of discharge -- normochromic and normocytic, consistent with loss 2/2 hemorrhage - Patient denied any symptoms concerning of anemia, including lightheadedness, dizziness, shortness of breath, chest pain throughout her stay - Transfuse if Hgb < 7 or symptomatic Syncopal Episode on 12/12 - Most likely 2/2 acute blood-loss anemia in setting of lower GIB - Patient denies any history of structural heart disease, arrhythmia, or CAD - ECG in the ED demonstrated NSR without any concerning ST-T abnormalities - Med/surg with telemetry for continued cardiac monitoring because of recent syncope - Fall precautions Chronic Medical Problems [place]: Continue latanoprost Dispo: Med/surg with Tele F/E/N: Bowel prep in anticipation of colonoscopy tomorrow, NPO after midnight; NSS @ 125 mIVF x 1 bag PPX: Low risk of DVT Code: Full code (2) LGI bleed: Total Time Total Time Spent Total Time Spent (In Minutes): <30 Discharge Plan Discharge Items Patient Disposition: Home - Self-Care Reason For Visit: GI BLEED Discharge Diagnosis: Lower gastrointestinal bleed Cecal ulcer Gastric erosions without bleeding Activity: Resume your previous activity Non-emergency contact: Primary Care Provider Call non-emergency contact if: your symptoms worsen, your temperature is above 101.5 and your wound has increased drainage Follow-up/Referrals: Chantell Moreno PA-C [Primary Care Provider] - Diet: Regular Addtl Attending Provider Instructions: You were seen at [facility] from 12/12 - 12/14 for evaluation of loose stools with associated blood clots, alongside an episode of passing out (syncope). Upon your arrival to the emergency room, you were also found to be slightly anemic (lower than normal red blood count). You underwent several tests, including a CT scan of the abdomen and pelvis, an upper endoscopy, and a colonoscopy to further characterize these problems. Your colonoscopy demonstrated an ulcer within your cecum (part of the large intestine), and your upper endoscopy showed some evidence of non-bleeding gastric erosions. Together with recent NSAID use, the bleeding ulcer discovered on your colonoscopy was likely the source of your symptoms - including bloody stools, anemia, and the syncopal episode. Your blood counts stabilized upon discharge, and we discussed limiting the use of NSAIDs. GI also recommended you start a proton pump inhibitor (PPI) until your follow-up in several weeks. You are to follow-up with your PCP within the next few weeks to discuss this visit with your primary care provider. If you experience excessive, continuous bleeding, or start feeling lightheaded/dizzy/short of breath, or experience another episode of passing out, please seek medical attention immediately by calling 911 or reporting to the ED. Pending Studies at Discharge: No Stand-Alone Forms: My [facility], Smoking Cessation Medications and DC Order Prescriptions: New pantoprazole 40 mg tablet,delayed release (DR/EC) 40 mg PO DAILY 28 Days Qty: 28 RF: 0 Continued latanoprost 0.005 % drops 1 drp ophthalmic (eye) DAILY RF: 0 Discharge Orders: Discharge Order (Routine); Ordered 12/15/19 Ordered By: Lemuel Sandoval/Other Patient Handouts: Pantoprazole tablets Admission Data Admit Date/Time: 12/13/19 20:17 Attending Provider: Lemuel Sweeney Admit Provider: Jennifer Killian Primary Care Provider: Chantell Moreno Other Providers: Jennifer Killian ; Rodney Santiago Other Interventions: Discharge Summary Assessment (RN) Last Done: 12/15/19 18:29 Supervising Physician Co-Signing Physician Notes I personally examined the patient and verified all farfan points of history and exam, discussed case, and agree with decision making with Dr Sterling. feeling ok bleeding stopped Hgb stable and wants to go home vitals noted nad heent nc at mmm breathing unlabored no accessory muscles good effort LGI bleeding and (mild) acute blood loss anemia -cecal ulcer most likely. stable for home. no nsaids. outpt GI f/u mild acute blood loss anemia now stable. outpt f/u otherwise as above Resident Activity Tracking Resident Involvement: Resident Care Provided Care Provided: Adult Hospital Medicine
--- NOTE | 2019-12-15 19:59 | Billing Data ---
Date of Service December 15, 2019 Coding Level of Care Code D/C Day Management <30 mins
== END 2019-12-15 19:00 | disposition home or self-care (01) ==
LOC: 2S 20:17 → INTOOBSV 20:17 → SUATTDRO 20:17 → 3E 12-14 20:37
DX: K63.3 Ulcer of intestine; K25.9 Gastric ulcer, unspecified as acute or chronic, without hemorrhage or perforation; Z68.35 Body mass index [BMI] 35.0-35.9, adult; Z87.891 Personal history of nicotine dependence; Z88.1 Allergy status to other antibiotic agents; E66.9 Obesity, unspecified; R55 Syncope and collapse; K57.30 Diverticulosis of large intestine without perforation or abscess without bleeding; H40.9 Unspecified glaucoma; K62.5 Hemorrhage of anus and rectum; K21.9 Gastro-esophageal reflux disease without esophagitis; D50.0 Iron deficiency anemia secondary to blood loss (chronic)